=== PATIENT | female | born 1965 | race Caucasian/White ===

== ENCOUNTER 2022-07-03 12:13 | Day surgery (SDC) | payer OTHER ==
[~2022-07-03] VITALS: Ht 157.5 cm; Wt 95.9 kg
[2022-07-03] MEDS ORDERED: OXYC-490 PO (12:45)
[2022-07-03] MEDS ORDERED: TRAZ-257 PO (12:54)
[2022-07-03] MEDS ORDERED: LOSA-381 PO (12:54)
[2022-07-03] MEDS ORDERED: B1/B1TAB4 PO (12:54)
[2022-07-03] MEDS ORDERED: EZET10TA57 PO (12:54)
[2022-07-03] MEDS ORDERED: METO25 PO (12:54)
[2022-07-03] MEDS ORDERED: DOCU-349 PO (12:54)
[2022-07-03] MEDS ORDERED: MULT-1251 PO (12:54)
[2022-07-03] MEDS ORDERED: PREG50 PO (12:54)
[2022-07-03] MEDS ORDERED: FLAX100038 PO (12:54)
[2022-07-03] MEDS ORDERED: SERT-158 PO (12:54)
[2022-07-03] MEDS ORDERED: CELE200 PO (12:54)
[2022-07-03] MEDS ORDERED: HYDR-4527 PO (12:54)
[2022-07-03] MEDS ORDERED: MAGN64TA14 PO (12:54)
[2022-07-03] MEDS ORDERED: ALPR-705 PO (12:54)
[2022-07-03] MEDS ORDERED: [UNRECOGNIZED DRUG - CODE] PO (12:54)
[2022-07-03] MEDS ORDERED: DIAZEPAM 5 MG TABLET ONE (12:58)
[2022-07-03] MEDS ORDERED: DiphenhydrAMINE HCL 50 MG CAPSULE ONE (12:58)
[2022-07-03] MEDS ORDERED: HEPARIN SODIUM 1000 UNITS/NS 1,000 ML ONE (14:53)
[2022-07-03] MEDS ORDERED: LIDOCAINE/PF 1% 30 ML VIAL ONE (14:53)
[2022-07-03] MEDS ORDERED: SODIUM BICARBONATE 50 MEQ/50 ML VIAL ONE (14:53)
[2022-07-03] MEDS ORDERED: NITROGLYCERIN 50 MG/D5% WATER 250 ML ONE (14:53)
[2022-07-03] MEDS ORDERED: VERAPAMIL HCL 2.5 MG/ML 2 ML VIAL ONE (14:53)
[2022-07-03] MEDS ORDERED: IOHEXOL 300 MG/ML 100 ML VIAL ONE (14:53)
[2022-07-03 15:20] VITALS: BP 174/74
[2022-07-03] MEDS ORDERED: HEPARIN SODIUM,PORCINE 1,000 UNITS/ML 10 ML VIAL ONE (15:24)
[2022-07-03] MEDS ORDERED: FentaNYL CITRATE PF 100 MCG/2 ML VIAL ONE ×2 (15:29→16:01)
[2022-07-03] MEDS ORDERED: MIDAZOLAM HCL 2 MG/2 ML VIAL ONE ×2 (15:29→16:01)
[2022-07-03] MEDS ORDERED: FentaNYL CITRATE PF 100 MCG/2 ML VIAL IVP ONE (15:45)
[2022-07-03] MEDS ORDERED: LIDOCAINE 1% 30 ML/SOD BICARB 8.4% 4 ML SQ ONE (15:45)
[2022-07-03] MEDS ORDERED: IOHEXOL 300 MG/ML 100 ML VIAL ICOR ONE (15:45)
[2022-07-03] MEDS ORDERED: MIDAZOLAM HCL 2 MG/2 ML VIAL IVP ONE (15:45)
[2022-07-03] MEDS ORDERED: HEPARIN SODIUM 1000 UNITS/NS 1,000 ML IARTER ONE (15:45)
[2022-07-03] MEDS ORDERED: NITROGLYCERIN/D5W 50 MG/250 ML IV BOTTLE IARTER ONE (16:15)
[2022-07-03] MEDS ORDERED: HEPARIN SODIUM,PORCINE 1,000 UNITS/ML 10 ML VIAL IARTER ONE (16:15)
[2022-07-03] MEDS ORDERED: VERAPAMIL HCL 2.5 MG/ML 2 ML VIAL IARTER ONE (16:15)
[2022-07-03 16:20] VITALS: BP 169/82
[2022-07-03] MEDS ORDERED: ISOS30TA92 PO (20:33)
[2022-07-03] MEDS ORDERED: SACU1TAB4 PO (20:33)
[2022-07-03] MEDS ORDERED: NITR0.4T50 SL (20:33)
[2022-07-04] MEDS ORDERED: SODIUM CHLORIDE 0.9% 1,000 ML IV ONE (13:00)
[2022-07-04] MEDS ORDERED: DIAZEPAM 5 MG TABLET PO ONE (15:00)
[2022-07-04] MEDS ORDERED: DiphenhydrAMINE HCL 50 MG CAPSULE PO ONE (15:00)
[2022-07-05] MEDS ORDERED: SODIUM CHLORIDE 0.9% 1,000 ML IV ONE (13:00)
== END 2022-07-03 19:05 | disposition home or self-care (01) ==
LOC: CATHLAB 12:13
PROVIDERS: ATTEND Internal Medicine Interventional Cardiology
DX: R07.9 Chest pain, unspecified (principal); I20.0 Unstable angina; I10 Essential (primary) hypertension; E66.01 Morbid (severe) obesity due to excess calories; Z90.710 Acquired absence of both cervix and uterus; Z98.890 Other specified postprocedural states; Z82.49 Family history of ischemic heart disease and other diseases of the circulatory system; Z79.899 Other long term (current) drug therapy
CPT/HCPCS: 93458; 99152; 99153; 93005; J3010; J1644 ×2; J3490 ×4; J2250; Q9967